=== PATIENT | female | born 1990 | race Caucasian/White ===

== ENCOUNTER 2021-05-02 08:07 | Day surgery (SDC) | payer OTHER ==
[~2021-05-02] VITALS: Ht 152.4 cm; Wt 133.6 kg
[~2021-05-02 08:07] MED LIST: DICY10CA59 PO; NITR100C11 PO; OMEP40CA21 PO
[2021-05-02 08:30] VITALS: BP 140/85
[2021-05-02] MEDS ORDERED: fentaNYL/PF 50MCG/1 ML 2ML syringe ONE (08:33)
[2021-05-02] MEDS ORDERED: MIDAZolam 1 MG/ML 5ML VIAL ONE (08:33)
[2021-05-02] MEDS ORDERED: LIDOcaine Viscous 15ml cup ONE (08:33)
[2021-05-02] MEDS ORDERED: CYCL-1 PO (08:48)
[2021-05-02] MEDS ORDERED: METF-436 PO (08:48)
[2021-05-02] MEDS ORDERED: mobic PO (08:48)
[2021-05-02 09:50] VITALS: BP 113/79
[2021-05-02 10:00] VITALS: BP 136/74
[2021-05-02 10:10] VITALS: BP 132/75
[2021-05-02 10:20] VITALS: BP 129/74
== END 2021-05-02 10:25 | disposition home or self-care (01) ==
LOC: GI LAB 08:07
PROVIDERS: ATTEND Internal Medicine Gastroenterology
DX: R10.13 Epigastric pain (principal); K29.50 Unspecified chronic gastritis without bleeding
CPT/HCPCS: 43239; J2250; J3010; J7040; Z7512; 99152; A4620

== ENCOUNTER 2024-08-30 15:36 | Outpatient (CLI) | payer OTHER ==
[~2024-08-30 15:36] MED LIST changes: +CYCL-1 PO; -DICY10CA59 PO; +METF-436 PO; -NITR100C11 PO; -OMEP40CA21 PO; +mobic PO
== END 2024-08-30 23:59 | disposition home or self-care (01) ==
LOC: RAD 15:36
PROVIDERS: ATTEND Registered Nurse
DX: M25.512 Pain in left shoulder (principal)
CPT/HCPCS: 73030

== ENCOUNTER 2024-11-01 00:37 | Emergency (ER) | payer OTHER ==
[~2024-11-01] VITALS: Ht 152.4 cm; Wt 86.0 kg
[2024-11-01 00:40] VITALS: TEMP 97.2
[2024-11-01] MEDS: ketorolac trometh 15mg/ml vial 15 MG/ML ML IV ONE (01:05)
[2024-11-01 01:07] LABS: BASOPHILS # (AUTO) 0.1 X10'3 (0-0.2); EOSINOPHILS # (AUTO) 0.1 X10'3 (0-0.9); EOSINOPHILS % (AUTO) 1.2 % (0-6); HEMATOCRIT 39.8 % (35.0-45.0); HEMOGLOBIN 13.7 g/dl (12.0-16.0); LYMPHOCYTES # (AUTO) 5.1 X10'3 (1.1-4.8); LYMPHOCYTES % (AUTO) 51.2 % (21-51); MEAN CORPUSCULAR HEMOGLOBIN 29.9 PG (27.0-31.0); MEAN CORPUSCULAR HGB CONC 34.4 g/dL (33.0-36.5); MEAN CORPUSCULAR VOLUME 86.9 FL (78-98); MEAN PLATELET VOLUME 8.7 FL (7.4-10.4); MONOCYTES # (AUTO) 0.6 X10'3 (0-0.9); MONOCYTES % (AUTO) 5.6 % (2-12); NEUTROPHILS # (AUTO) 4.1 X10'3 (1.8-7.7); PLATELET COUNT 283 X10'3 (140-440); RED BLOOD COUNT 4.58 X10'6 (4.20-5.60); RED CELL DISTRIBUTION WIDTH 13.3 % (11.5-14.5)
[2024-11-01] MEDS: ondansetron/PF 4mg/2ml inj IV ONE (01:08)
[2024-11-01] MEDS: mag hydrox/Alum hydrox/simeth 30ml oral suspension PO ONE (01:08)
[2024-11-01] MEDS: famotidine/PF 10 mg/ml inj IV ONE (01:08)
[2024-11-01] MEDS: LIDOcaine 2% Viscous 15ml cup MM ONE (01:08)
[2024-11-01] MEDS: acetaminophen 1,000mg/100ml IV 100 ML IV ONE (01:09)
[2024-11-01 01:19] LABS: BILIRUBIN,URINE NEGATIVE (Neg); CLARITY,URINE SLIGHTLY CLOUDY (Clear); COLOR,URINE YELLOW (Yellow); GLUCOSE, URINE NEGATIVE (Neg); KETONES,URINE 15 mg/dl (Neg); LEUKOCYTE ESTERASE ,URINE NEGATIVE (Neg); NITRITES, URINE NEGATIVE (Neg); OCCULT BLOOD,URINE LARGE (Neg); PROTEIN,URINE TRACE mg/dl (Neg); URINE HCG NEGATIVE (NEG); UROBILINOGEN,URINE 0.2 E.U/dL (0.2-1.0)
[2024-11-01 01:21] LABS: ALANINE AMINOTRANSFERASE 40 U/L (12-78); ALBUMIN 3.8 G/DL (3.4-5.0); ALKALINE PHOSPHATASE 48 IU/L (46-116); ANION GAP 9 (8-16); ASPARTATE AMINO TRANSFERASE 23 U/L (10-37); BILIRUBIN,TOTAL 0.5 MG/DL (0.1-1.0); BLOOD UREA NITROGEN 17 MG/DL (7-18); BUN/CREATININE RATIO 18.9 (10.0-20.0); CALCIUM 9.1 MG/DL (8.5-10.1); CHLORIDE 106 MMOL/L (99-107); GLUCOSE 121 MG/DL (70-104); LIPASE 58 U/L (16-77); POTASSIUM 3.5 MMOL/L (3.5-5.1); SODIUM 143 MMOL/L (135-145); TOTAL CARBON DIOXIDE 27.6 MMOL/L (24-32); TOTAL PROTEIN 7.8 G/DL (6.4-8.2); eCRCL 62 ML/MIN; eGFR 71 ML/MIN
[2024-11-01 01:23] LABS: UA COLLECTION TYPE CLN CATCH MIDSTREAM
[2024-11-01] MEDS: normal saline 1000ML IV soln IVB ONE (01:23)
[2024-11-01 01:24] LABS: BACTERIA,URINE 1+ /HPF (Neg); MUCUS STRANDS MODERATE /LPF (Neg); SQUAMOUS EPITHELIAL CELL,UR MANY /LPF (FEW); WBC,URINE 0-4 /HPF (0-4)
[2024-11-01 01:47] LABS: TOTAL CELLS COUNTED 100
[2024-11-01] MEDS ORDERED: FAMO-129 PO (02:56)
[2024-11-01] MEDS ORDERED: ONDA-245 PO (02:56)
[2024-11-01 03:00] VITALS: BP 115/73; PULSE 80; RESP 18; O2SAT 100
== END 2024-11-01 03:07 | disposition home or self-care (01) ==
LOC: ER 00:37
DX: R10.13 Epigastric pain (principal); Z98.51 Tubal ligation status
CPT/HCPCS: 36415; 80053; 81001; 81025; 83690; 85007; 85025; 96374; 96375; 99284; J0131; J1885; J2405; J3490; J7030